=== PATIENT | female | born 1950 | race Caucasian/White ===

== ENCOUNTER → 2016-10-07 | Outpatient (CLI) | payer BC ==
[~2016-10-07] MED LIST: BUSP5TAB59 PO; EFF/375 PO; HYDR-3126 PO; LORA0.5T12 PO; NOTE; NXM/40 PO; PHEN-775 PO; TAMO20TA9 PO
--- NOTE | 2016-10-07 09:52 | Discharge Instructions ---
Discharge Instructions Procedure Procedure Date: Oct 07, 2016. Reason for visit: Right Breast Masses. Discharge Discharge Date: Oct 07, 2016. Discharge Diagnosis: post right breast ultrasound guided core biopsy in the 11:00 and 2:00 axes Instructions Activity Recommendations: Additional Limitations (see below) Return to School/Work: no limitations Recommended Home Diet: No Limitations Provider Instructions: ACTIVITY RECOMMENDATIONS: * No lifting, pushing, pulling or exercising the affected side for three days. RETURN TO SCHOOL/WORK: * You may return to work/school after the procedure, but do not perform any strenuous activities for 24 to 48 hours. MEDICATIONS: * Tylenol (two 325 mg) every four to six hours if needed for mild pain (if not allergic to Tylenol). DIET: * Resume previous diet. SPECIAL CARE INSTRUCTIONS: * Keep biopsy site dry for 24 hours. May shower after 24 hours, but do not soak (bathe) incision. * May remove Tegaderm (plastic patch) tomorrow AFTER showering. * Leave the steri-strips on for one week. Allow the steri-strips to fall off by themselves. If not off after one week, you may remove them. You may place a Bandaid crosswise over the strips, if desired. * Apply ice 10 minutes on and 10 minutes off as needed. * Wear a bra at bedtime to sleep more comfortably for 2-3 days. * Your referring physician should have the results after approximately 5 to 7 business days. * Call for unusual bleeding, fever, drainage, etc or if you have any questions call [phone] during normal business hours or after hours call Dr Nava, . FOLLOW UP VISIT: Follow-up with Referring Physician as scheduled. Allergies Coded Allergies: Erythromycin (Unverified Allergy, Intermediate, hives, 03/12/12) Amoxicillin (Verified Allergy, Unknown, hives, 12/23/13) Clavulanic Acid (Verified Allergy, Unknown, hives, 12/23/13) Riri Monge Recommendations: Call your doctor if: * Temperature above 101 degrees * Pain not relieved by pain medicine ordered * There is increased drainage or redness from any incision * You have any unanswered questions or concerns. Your Doctors Instructions noted above were prepared by provider Maria Luisa Nava. Patient Signature Section: Patient Instructions Signature Page Keely Wallace Patient (or Guardian) Signature/Date: I have read and understand the instructions given to me by my caregivers. Caregiver/RN/Doctor Signature/Date: The above-named patient and/or guardian has received patient instructions on this date. + Original Patient Signature Page (only) stays with chart. Please make copy for patient.
--- NOTE | 2016-10-07 12:36 | MAMMOGRAPHY REPORT ---
UNILATERAL RIGHT DIGITAL DIAGNOSTIC MAMMOGRAM TOMOSYNTHESIS: 10/07/2016 CLINICAL HISTORY: Status post ultrasound guided core needle biopsy 2 in the right breast. FINDINGS: Please refer to the report from right breast ultrasound guided core needle biopsy perform ed at the same time for full detail. IMPRESSION: POST PROCEDURE IMAGING FOR MARKER PLACEMENT Please refer to the report from right breast ultrasound guided core needle biopsy performed at the s ramiro time for full detail. Approximately 10% of breast cancers are not detected with mammography. A negative mammographic repor t should not delay biopsy if a clinically suggestive mass is present. Maria Luisa Nava M.D. ay/:10/07/2016 09:59:57 Supervisor Plasma: Edith NIEVES(Erwin)(Jimmy), [facility] BI-RADS Code: Post Procedure Imaging For Marker Placement
--- NOTE | 2016-10-07 12:36 | MAMMOGRAPHY REPORT ---
ULTRASOUND GUIDED BIOPSY: 10/07/2016 CLINICAL HISTORY: Indeterminate taller than wide hypoechoic lesions in the 11:00 and 2:00 axes of th e right breast. Patient presents for ultrasound guided core needle biopsy 2. COMPARISON: Comparison is made to exams dated: 10/07/2016 ultrasound biopsy, 09/23/2016 mammogram, mammogram, 09/19/2014 mammogram, 10/01/2013 aspiration, and 01/16/2012 [facility]. PATIENT CONSENT: The procedure, risks and benefits were discussed with the patient and informed writ ten consent was obtained. Specific risks to this procedure include: bleeding, infection, puncture of adjacent structure, nontarget biopsy, sampling error and medication reaction. PROCEDURE DESCRIPTION: A time out was performed and the right breast was agreed as the site of biops y. The skin was prepped and draped in the usual sterile fashion. First the taller than wide hypoech oic mass along the surgical scar in the 11:00 right breast was identified and chosen as the target f or biopsy. Subcutaneous and intraparenchymal 1% buffered lidocaine, with and without epinephrine, wa s administered as local anesthesia. A skin incision was made. Through the incision, 4 samples were taken with a 14 gauge Achieve biopsy device. A ribbon shaped metallic marker was placed at the biops y site. Hemostasis was achieved after manual compression. The patient tolerated the procedure well a nd there was no immediate complication. Then, the spiculated hypoechoic taller than wide mass in the 2:00 right breast was identified and ta rgeted for biopsy. Additional Betadine was used to cleanse the skin of the medial right breast. 1% buffered lidocaine was administered as local anesthesia. A skin incision was made. Through the inc ision, 4 samples were taken with a 14 gauge Achieve biopsy device. A wing-shaped metallic marker was placed at the biopsy site. Hemostasis was achieved after manual compression. The patient tolerated the procedure well and there was no immediate complication. All of the samples were sent to the pat hology department in appropriately labeled containers. Postprocedure right CC and MLO 2-D digital and tomosynthesis images were obtained. New metallic bio psy markers are present in the 2:00 and 11:00 axes of the right breast. The wing-shaped marker in t he 2:00 axis a lines with the new irregular and spiculated mass in question. No significant postbio psy hematoma is identified. IMPRESSION: ULTRASOUND GUIDED BIOPSY Status post ultrasound-guided core needle biopsy in the 11:00 and 2:00 axes of the right breast, wit h biopsy markers placed at each site. The patient will receive notification of the biopsy results from her referring physician. Maria Luisa Nava M.D. ay/:10/07/2016 10:23:03 Utility Engineer: Edith NIEVES(Erwin)(Jimmy), [facility]
--- NOTE | 2016-10-07 12:36 | MAMMOGRAPHY REPORT ---
MULTIPLE ULTRASOUND GUIDED BIOPSIES RIGHT BREAST: 10/07/2016 CLINICAL HISTORY: Ill-defined taller than wide hypoechoic masses in the 11:00 and 2:00 axes of the r ight breast. Patient presented for ultrasound-guided core needle biopsy 2. COMPARISON: Comparison is made to exams dated: 10/07/2016 ultrasound biopsy, 09/23/2016 mammogram, mammogram, 09/19/2014 mammogram, 10/01/2013 aspiration, and 01/16/2012 [facility]. PATIENT CONSENT: The procedure, risks and benefits were discussed with the patient and informed writ ten consent was obtained. Specific risks to this procedure include: bleeding, infection, puncture of adjacent structure, nontarget biopsy, sampling error and medication reaction. PROCEDURE DESCRIPTION: A time out was performed and the right breast was agreed as the site of biops y. The skin was prepped and draped in the usual sterile fashion. First the taller than wide hypoech oic mass along the surgical scar in the 11:00 right breast was identified and chosen as the target f or biopsy. Subcutaneous and intraparenchymal 1% buffered lidocaine, with and without epinephrine, wa s administered as local anesthesia. A skin incision was made. Through the incision, 4 samples were taken with a 14 gauge Achieve biopsy device. A ribbon shaped metallic marker was placed at the biops y site. Hemostasis was achieved after manual compression. The patient tolerated the procedure well a nd there was no immediate complication. Then, the spiculated hypoechoic taller than wide mass in the 2:00 right breast was identified and ta rgeted for biopsy. Additional Betadine was used to cleanse the skin of the medial right breast. 1% buffered lidocaine was administered as local anesthesia. A skin incision was made. Through the inc ision, 4 samples were taken with a 14 gauge Achieve biopsy device. A wing-shaped metallic marker was placed at the biopsy site. Hemostasis was achieved after manual compression. The patient tolerated the procedure well and there was no immediate complication. All of the samples were sent to the pat hology department in appropriately labeled containers. Postprocedure right CC and MLO 2-D digital and tomosynthesis images were obtained. New metallic bio psy markers are present in the 2:00 and 11:00 axes of the right breast. The wing-shaped marker in t he 2:00 axis a lines with the new irregular and spiculated mass in question. No significant postbio psy hematoma is identified. IMPRESSION: ULTRASOUND GUIDED BIOPSY Status post ultrasound guided core needle biopsy in the 2:00 and 11:00 axes of the right breast, wit h biopsy markers placed at each site. The patient will receive notification of the biopsy results from her referring physician. Maria Luisa Nava M.D. ay/:10/07/2016 10:11:28 Repair Armature Winder Helper: Edith BARROS)(Jimmy), [facility]
== END | disposition home or self-care (01) ==
LOC: C.MAMM 08:43
PROVIDERS: ATTEND Family Medicine
DX: N63 Unspecified lump in breast (principal)

== ENCOUNTER 2016-10-30 16:27 | Emergency (ER) | payer BC ==
[~2016-10-30] VITALS: Ht 172.7 cm; Wt 61.1 kg
[~2016-10-30 16:27] MED LIST changes: -BUSP5TAB59 PO; -EFF/375 PO; -HYDR-3126 PO; -LORA0.5T12 PO; -PHEN-775 PO; -TAMO20TA9 PO
[2016-10-30 16:39] VITALS: TEMP 36.6; Ht 172.7 cm; Wt 61.1 kg
[2016-10-30] MEDS ORDERED: SODIUM CHLORIDE 0.9% 1000ML 1,000 ML IV STA (17:00)
[2016-10-30] MEDS ORDERED: MoRPHine SULFATE 4 MG/ML 1 ML CARP\\VIAL IV STA (17:00)
[2016-10-30] MEDS ORDERED: ONDANSETRON INJ 2 MG/ML 2 ML VIAL IV STA ×2 (17:00→18:35)
--- NOTE | 2016-10-30 17:05 | EMERGENCY ROOM VISIT NOTE ---
History First contact with patient: 16:51 Chief Complaint: KIDNEY STONE Stated Complaint: KIDNEY STONE History of Present Illness The patient is a 66 year old female who presents to the Emergency Room with complaints of right flank pain. The patient was diagnosed with a recurrence of breast cancer last month. She had a PET scan done yesterday which was clear. She has had right-sided flank pain for the last 4 days. She did not sleep for the first 2 nights. She was seen by her family doctor yesterday. She states that her temperature at that visit was 99F. She states that she was given pain medication which helped her sleep. She states she was also told there was blood in her urine. The patient was on her way to [facility] for a very important appointment tomorrow when she developed a significant increase in pain and vomiting. She stated it was so severe they had to turn around and come here. She denies any pain in her chest, trouble breathing, pleuritic chest pain. She denies any rash. She states the pain is in the right flank. She denies any true radiation to her abdomen. She denies any pain, tingling, numbness, weakness in the upper or lower extremities. She denies any obvious hematuria dysuria, urgency or frequency. Review of Systems A 10 system review of systems was completed with positives and pertinent negatives listed in the HPI. Past Medical/Surgical History Medical Problems: (1) Breast cancer (2) Lumpectomy of breast Social History Smoking Status: Former Smoker Alcohol Use: none Marital Status: Occupation Status: employed Current/Historical Medications Scheduled Esomeprazole Magnesium (Nexium), 40 MG PO DAILY Venlafaxine Hcl (Effexor), 18.75 MG PO DAILY Allergies Coded Allergies: Erythromycin (Unverified Allergy, Intermediate, hives, 10/30/16) Amoxicillin (Verified Allergy, Unknown, hives, 10/30/16) Clavulanic Acid (Verified Allergy, Unknown, hives, 10/30/16) Physical Exam Vital Signs Date Time Temp Pulse Resp B/P Pulse Ox O2 Delivery O2 Flow Rate FiO2 10/30/16 20:41 99 18 124/70 94 10/30/16 18:32 88 16 131/78 98 Room Air 10/30/16 16:39 36.6 86 18 133/79 94 Room Air Physical Exam VITALS: Vitals are noted on the nurse's note and reviewed by myself. Vital signs stable.The patient is afebrile. Her oxygen saturation is 94% on room air. GENERAL: This is a 66-year-old female, in no acute distress, nondiaphoretic, well-developed well-nourished. SKIN: The skin was without rashes, erythema, edema, or bruising. There is no tenting of the skin. Capillary reflex less than 2 seconds. HEAD: Normocephalic atraumatic. EARS: The external ears are normal in appearance. EYES: Pupils equal round and reactive to light and accommodation. Conjunctivae without injection, sclerae without icterus. Extraocular movements intact. NOSE: Patent, turbinates without inflammation or discharge. MOUTH: Mucous membranes moist. Tonsils are not enlarged. Pharynx without erythema or exudate. Uvula midline. Airway patent. Tongue does not deviate. NECK: Supple without nuchal rigidity. No JVD. HEART: Regular rate and rhythm without murmurs gallops or rubs. LUNGS: Clear to auscultation bilaterally without wheezes, rales or rhonchi. No retractions or accessory muscle use. ABDOMEN: Positive bowel sounds x 4. Soft, nontender, without masses or organomegaly. Francisco sign negative. MUSCULOSKELETAL: No muscle atrophy, erythema, or edema noted. Full range of motion without joint tenderness in all extremities. There is mild tenderness to palpation over the right flank. Normal gait. Strength 5/5 throughout. NEURO: Patient was alert and oriented to person place and time. No focal neurological deficits. Medical Decision & Procedures ER Provider Diagnostic Interpretation: CT SCAN OF THE ABDOMEN AND PELVIS WITHOUT IV CONTRAST CLINICAL HISTORY: Right flank pain. Hematuria. Nausea. COMPARISON STUDY: Abdominal ultrasound dated 04/17/2015. Chest CT dated 07/20/2013. TECHNIQUE: CT scan of the abdomen and pelvis is performed from the lung bases to the proximal femora. Images are reviewed in the axial, sagittal, and coronal planes. IV contrast was not administered for this examination. Automated dose control exposure was utilized. CT DOSE: 597.91 mGy.cm FINDINGS: Lung bases: The heart is normal in size and without pericardial effusion. 1.7 cm cyst is noted in the right lower lobe. There is a fat-containing left Bochdalek hernia. A 2 mm pleural-based nodule at the left lung base as noted on image #13. This is of doubtful significance. No airspace consolidation or pleural effusion is seen. Liver: The unenhanced liver is normal in size, contour, and attenuation. There is no intrahepatic biliary ductal dilatation. Gallbladder: Unremarkable. Spleen: Normal in size. There are numerous (greater than 10) indeterminant splenic hypodensities. Pancreas: Unremarkable. Adrenal glands: Unremarkable. Kidneys: The unenhanced kidneys demonstrate minimal cortical atrophy and are without hydronephrosis. There are no renal calculi identified. A 5 mm angiomyolipoma is noted in the upper pole the right kidney on axial image #105. Abdominal vasculature: The abdominal aorta is normal in course and caliber noting mild to moderate atherosclerotic calcification. Bowel: The small bowel and colon are normal in course and caliber. The appendix is well-visualized and normal. Peritoneum: There is no intraperitoneal free air or abdominal ascites. There is a small fat-containing umbilical hernia. Lymphadenopathy: None. Pelvic viscera: There is a 1.3 cm soft tissue nodule suggested involving the posterior right bladder wall on axial image #320. The uterus and adnexa are normal as visualized. Skeletal structures: The skeletal structures are osteopenic. There is mild lumbosacral spondylosis and scoliosis. No lytic or blastic lesions are seen. IMPRESSION: 1. There are no acute infectious or inflammatory findings in the abdomen or pelvis. 2. A 1.3 cm soft tissue nodule is suspected involving the posterior right wall of the bladder. Neoplasm is the diagnosis of exclusion. Follow-up urology is recommended. 3. There are numerous (greater than 10) indeterminant hypodensities in the spleen. This is similar to the [address] SINGLE VIEW CHEST CLINICAL HISTORY: Flank pain. FINDINGS: An AP, portable, upright chest radiograph is compared to study dated 12/25/2013. Correlation is made with chest CT dated and 1513. The examination is degraded by portable technique and patient rotation. The cardiomediastinal silhouette is unremarkable. Emphysema and chronic interstitial thickening are similar to previous. There is no airspace consolidation or pleural effusion there is a questionable 11 mm nodular density projecting over the right lung base. No pneumothorax is seen. The skeletal structures are osteopenic. The bony thorax is grossly intact. IMPRESSION: 1. Emphysema with no active disease in the chest. 2. Findings suggest obstructive physiology. 3. There is a questionable 11 mm nodular density projecting over the right lung base. This may represent superimposition of shadows. Follow-up with a PA and lateral chest x-ray with nipple markers is recommended for reassessment. Laboratory Results 10/30/16 17:00 Red Blood Count 4.50, Mean Corpuscular Volume 86.7, Mean Corpuscular Hemoglobin 30.4, Mean Corpuscular Hemoglobin Concent 35.1, Mean Platelet Volume 10.6, Neutrophils (%) (Auto) 68.9, Lymphocytes (%) (Auto) 20.6, Monocytes (%) (Auto) 10.0, Eosinophils (%) (Auto) 0.5, Basophils (%) (Auto) 0.0, Neutrophils # (Auto ) 2.68, Lymphocytes # (Auto) 0.80, Monocytes # (Auto) 0.39, Eosinophils # (Auto ) 0.02, Basophils # (Auto) 0.00 10/30/16 17:00 Test 10/30/16 16:50 10/30/16 17:00 Urine Color YELLOW Urine Appearance CLEAR (CLEAR) Urine pH 7.5 (4.5-7.5) Urine Specific [place] 1.007 (1.000-1.030) Urine Protein NEG (NEG) Urine Glucose (UA) NEG (NEG) Urine Ketones NEG (NEG) Urine Occult Blood 2+ (NEG) Urine Nitrite NEG (NEG) Urine Bilirubin NEG (NEG) Urine Urobilinogen NEG (NEG) Urine Leukocyte Esterase NEG (NEG) Urine WBC (Auto) 1-5 /hpf (0-5) Urine RBC (Auto) 10-30 /hpf (0-4) Urine Hyaline Casts (Auto) 0 /lpf (0-5) Urine Epithelial Cells (Auto) 10-20 /lpf (0-5) Urine Bacteria (Auto) NEG (NEG) White Blood Count 3.89 K/uL (4.8-10.8) Red Blood Count 4.50 M/uL (4.2-5.4) Hemoglobin 13.7 g/dL (12.0-16.0) Hematocrit 39.0 % (37-47) Mean Corpuscular Volume 86.7 fL (80-100) Mean Corpuscular Hemoglobin 30.4 pg (25-34) Mean Corpuscular Hemoglobin Concent 35.1 g/dl (32-36) Platelet Count 183 K/uL (130-400) Mean Platelet Volume 10.6 fL (7.4-10.4) Neutrophils (%) (Auto) 68.9 % Lymphocytes (%) (Auto) 20.6 % Monocytes (%) (Auto) 10.0 % Eosinophils (%) (Auto) 0.5 % Basophils (%) (Auto) 0.0 % Neutrophils # (Auto) 2.68 K/uL (1.4-6.5) Lymphocytes # (Auto) 0.80 K/uL (1.2-3.4) Monocytes # (Auto) 0.39 K/uL (0.11-0.59) Eosinophils # (Auto) 0.02 K/uL (0-0.5) Basophils # (Auto) 0.00 K/uL (0-0.2) RDW Standard Deviation 42.5 fL (36.4-46.3) RDW Coefficient of Variation 13.3 % (11.5-14.5) Immature Granulocyte % (Auto) 0.0 % Immature Granulocyte # (Auto) 0.00 K/uL (0.00-0.02) Anion Gap 10.0 mmol/L (3-11) Est Creatinine Clear Calc Drug Dose 61.8 ml/min Estimated GFR () 82.8 Estimated GFR (Non- 71.4 BUN/Creatinine Ratio 13.7 (10-20) Calcium Level 8.9 mg/dl (8.5-10.1) Total Bilirubin 0.3 mg/dl (0.2-1) Aspartate Amino Transf (AST/SGOT) 15 U/L (15-37) Alanine Aminotransferase (ALT/SGPT) 16 U/L (12-78) Alkaline Phosphatase 63 U/L (45-117) Total Protein 6.9 gm/dl (6.4-8.2) Albumin 3.6 gm/dl (3.4-5.0) Globulin 3.3 gm/dl (2.5-4.0) Albumin/Globulin Ratio 1.1 (0.9-2) Medications Administered Medications (Trade) Dose Ordered Sig/Kassandra Route Start Time Stop Time Status Last Admin Dose Admin Sodium Chloride (Nss 1000ml) 1,000 ml @ 999 mls/hr Q1H1M STAT IV 10/30/16 17:00 10/30/16 18:00 DC 10/30/16 17:14 999 MLS/HR Morphine Sulfate (MoRPHine SULFATE INJ) 4 mg NOW STAT IV 10/30/16 17:00 10/30/16 17:02 DC 10/30/16 17:15 4 MG Ondansetron HCl (Zofran Inj) 4 mg NOW STAT IV 10/30/16 17:00 10/30/16 17:02 DC 10/30/16 17:15 4 MG Lorazepam (Ativan Inj) 1 mg NOW STAT IV 10/30/16 17:59 10/30/16 18:01 DC 10/30/16 18:03 1 MG Morphine Sulfate (MoRPHine SULFATE INJ) 2 mg NOW STAT IV 10/30/16 18:35 10/30/16 18:36 DC 10/30/16 18:35 2 MG Ondansetron HCl (Zofran Inj) 4 mg NOW STAT IV 10/30/16 18:35 10/30/16 18:36 DC 10/30/16 18:35 4 MG Ondansetron HCl (ZOFRAN ODT 4MG Home Pack) 1 homepack UD ONCE PO 10/30/16 20:45 10/30/16 20:46 DC 10/30/16 20:45 1 HOMEPACK ED Course The patient was seen and examined. Previous visits were reviewed. The patient does not have a fever. She does not have a leukocytosis. Urinalysis reveals hematuria but no obvious urinary tract infection. CT scan of the abdomen and pelvis without contrast for stone was obtained. There is no evidence for nephrolithiasis or ureterolithiasis. The patient does have a concerning soft tissue mass at the posterior aspect of the bladder. I did discuss this in detail with the patient and her and advised them that there is concern for neoplasm. This could explain her hematuria. The patient has had ongoing right flank pain. The exact etiology of her symptoms is not clear at this time. She has not had any chest pain, shortness of breath , pleuritic chest pain, tachycardia or hypoxia. She does not have a rash that was advised to watch for a rash that could indicate shingles. She is afebrile. There is no evidence for pyelonephritis or urinary tract infection. The patient was hydrated with normal saline She was given 4 mg IV morphine and 4 mg IV Zofran The patient was unable to complete her CAT scan due to anxiety and claustrophobia. She was given 1 mg IV Ativan with improvement She was then given 2 mg IV morphine and 4 mg IV Zofran She was given a Zofran home pack The patient was feeling markedly improved after the above treatment. She was able to walk and sit without any obvious difficulty. The patient was also seen and evaluated by Dr. Arizmendi. The patient states she does not wish to stay in the hospital. She states that she has pain medication at home although she does not like how it makes her feel. The patient was encouraged to follow-up with her family doctor in the next 24-48 hours. She was already able to reschedule her appointment at [facility] for the first week in November. She should return to the ER if any chest pain, shortness of breath or generalized worsening symptoms. The patient was also seen and examined by Dr. Arzimendi who agrees with the assessment and treatment plan. Medical Decision DIFFERENTIAL DIAGNOSIS: Hepatitis, cholecystitis, cholangitis, biliary colic, pancreatitis, pneumonia, subdiaphragmatic abscess, appendicitis, inguinal hernia , nephrolithiasis, inflammatory bowel disease, mesenteric adenitis, peptic ulcer disease, GERD, gastritis, pancreatitis, myocardial infarction, pericarditis, ruptured aortic aneurysm, appendicitis, gastroenteritis, bowel obstruction, splenic infarct, diverticulitis, mesenteric ischemia, metabolic, peritonitis, among others. Impression Primary Impression: Flank pain Departure Information Dispostion Home / Self-Care Condition GOOD Referrals Isai Rivera M.D. (PCP) Patient Instructions My [email or web address] Additional Instructions Zofran every 6 hours as needed for nausea Continue pain medication as prescribed as needed Return with worsening symptoms
[2016-10-30] MEDS ORDERED: EFF/375 PO (17:15)
[2016-10-30 17:17] LABS: COMPLETE YES; EOS % 0.5 %; LYMPH % 20.6 %; MEAN CELL VOLUME 86.7 fL (80-100); MEAN CORPUSCULAR HEMOGLOBIN 30.4 pg (25-34); MEAN CORPUSCULAR HGB CONC 35.1 g/dl (32-36); MEAN PLATELET VOLUME 10.6 fL (7.4-10.4); NEUT % 68.9 %; PLATELET COUNT 183 K/uL (130-400); WHITE BLOOD COUNT 3.89 K/uL (4.8-10.8)
[2016-10-30 17:35] LABS: URINE APPEARANCE CLEAR (CLEAR); URINE BILIRUBIN NEG (NEG); URINE COLOR YELLOW; URINE NITRITE NEG (NEG); URINE PH 7.5 (4.5-7.5); URINE SPECIFIC GRAVITY 1.007 (1.000-1.030); UROBILINOGEN NEG (NEG); ZZUR CULT IF INDIC CLEAN CATCH NO
[2016-10-30 17:35] LABS: CREATININE 0.84 mg/dl (0.60-1.20)
[2016-10-30 17:36] LABS: BUN/CREATININE RATIO 13.7 (10-20); CALCIUM 8.9 mg/dl (8.5-10.1); POTASSIUM 3.5 mmol/L (3.5-5.1)
[2016-10-30 17:38] LABS: ALB/GLOB RATIO 1.1 (0.9-2)
[2016-10-30 17:43] LABS: MANUAL MICROSCOPIC REQUIRED? NO; REVIEW REQ? NO
[2016-10-30] MEDS ORDERED: LORAZEPAM 2 MG/ML 1 ML VIAL IV STA (17:59)
[2016-10-30] MEDS ORDERED: MoRPHine SULFATE 2 MG/ML CARP IV STA (18:35)
--- NOTE | 2016-10-30 18:55 | DIAGNOSTIC IMAGING REPORT ---
CT SCAN OF THE ABDOMEN AND PELVIS WITHOUT IV CONTRAST CLINICAL HISTORY: Right flank pain. Hematuria. Nausea. COMPARISON STUDY: Abdominal ultrasound dated 04/17/2015. Chest CT dated 07/20/2013. TECHNIQUE: CT scan of the abdomen and pelvis is performed from the lung bases to the proximal femora. Images are reviewed in the axial, sagittal, and coronal planes. IV contrast was not administered for this examination. Automated dose control exposure was utilized. CT DOSE: 597.91 mGy.cm FINDINGS: Lung bases: The heart is normal in size and without pericardial effusion. 1.7 cm cyst is noted in the right lower lobe. There is a fat-containing left Bochdalek hernia. A 2 mm pleural-based nodule at the left lung base as noted on image #13. This is of doubtful significance. No airspace consolidation or pleural effusion is seen. Liver: The unenhanced liver is normal in size, contour, and attenuation. There is no intrahepatic biliary ductal dilatation. Gallbladder: Unremarkable. Spleen: Normal in size. There are numerous (greater than 10) indeterminant splenic hypodensities. Pancreas: Unremarkable. Adrenal glands: Unremarkable. Kidneys: The unenhanced kidneys demonstrate minimal cortical atrophy and are without hydronephrosis. There are no renal calculi identified. A 5 mm angiomyolipoma is noted in the upper pole the right kidney on axial image #105. Abdominal vasculature: The abdominal aorta is normal in course and caliber noting mild to moderate atherosclerotic calcification. Bowel: The small bowel and colon are normal in course and caliber. The appendix is well-visualized and normal. Peritoneum: There is no intraperitoneal free air or abdominal ascites. There is a small fat-containing umbilical hernia. Lymphadenopathy: None. Pelvic viscera: There is a 1.3 cm soft tissue nodule suggested involving the posterior right bladder wall on axial image #320. The uterus and adnexa are normal as visualized. Skeletal structures: The skeletal structures are osteopenic. There is mild lumbosacral spondylosis and scoliosis. No lytic or blastic lesions are seen. IMPRESSION: 1. There are no acute infectious or inflammatory findings in the abdomen or pelvis. 2. A 1.3 cm soft tissue nodule is suspected involving the posterior right wall of the bladder. Neoplasm is the diagnosis of exclusion. Follow-up urology is recommended. 3. There are numerous (greater than 10) indeterminant hypodensities in the spleen. This is similar to the [address] Electronically signed by: Kian Miller M.D. 10/30/2016 6:53 PM Dictated Date/Time: 10/30/2016 6:45 PM
--- NOTE | 2016-10-30 19:13 | DIAGNOSTIC IMAGING REPORT ---
SINGLE VIEW CHEST CLINICAL HISTORY: Flank pain. FINDINGS: An AP, portable, upright chest radiograph is compared to study dated 12/25/2013. Correlation is made with chest CT dated and 1513. The examination is degraded by portable technique and patient rotation. The cardiomediastinal silhouette is unremarkable. Emphysema and chronic interstitial thickening are similar to previous. There is no airspace consolidation or pleural effusion there is a questionable 11 mm nodular density projecting over the right lung base. No pneumothorax is seen. The skeletal structures are osteopenic. The bony thorax is grossly intact. IMPRESSION: 1. Emphysema with no active disease in the chest. 2. Findings suggest obstructive physiology. 3. There is a questionable 11 mm nodular density projecting over the right lung base. This may represent superimposition of shadows. Follow-up with a PA and lateral chest x-ray with nipple markers is recommended for reassessment. Electronically signed by: Kian Miller M.D. 10/30/2016 7:11 PM Dictated Date/Time: 10/30/2016 7:08 PM
--- NOTE | 2016-10-30 20:11 | EMERGENCY ROOM VISIT NOTE ---
ED Visit Note First contact with patient: 16:55 Patient evaluated with PA. 66-year-old reports recurrence of breast cancer scheduled to be seen at [facility] tomorrow morning however she had acute onset of right-sided flank pain today reportedly had a fever to 99 and blood in her urine for which her primary doctor reportedly told her that she had a kidney stone and prescribed Percocets. She states she felt nauseous and unwell tonight and subsequently presented to the emergency room. Her evaluation here was negative for pyelonephritis or ureterolithiasis. PA requested I see patient as she complained of continued pain. She is noted to have been prescribed 24 Percocet as well as lorazepam earlier this month for anxiety as needed. Assessment of psychiatric and neurologic status is somewhat skewed by central tremor. Patient was concerned about what actions will be taken to the emergency room for her pain despite the lack of a clear diagnosis. I offered her either observation status or discharge. PA will take care of final disposition based on patient preferences.
[2016-10-30 20:41] VITALS: BP 124/70; PULSE 99; O2SAT 94
[2016-10-30] MEDS ORDERED: ONDANSETRON HOME PACK 4MG OD TAB PO ONE (20:45)
[2017-02-17] MEDS ORDERED: LORA0.5T12 PO (16:05)
[2017-02-17] MEDS ORDERED: TAMO20TA47 PO (16:05)
[2017-02-17] MEDS ORDERED: BUSP5TAB59 PO (16:05)
[2017-02-19] MEDS ORDERED: PHEN-775 PO (08:35)
== END 2016-10-30 20:41 | disposition home or self-care (01) ==
LOC: C.EDB 16:28 → C.EDC 20:41
DX: R10.9 Unspecified abdominal pain (principal); Z85.3 Personal history of malignant neoplasm of breast; Z87.891 Personal history of nicotine dependence; R11.10 Vomiting, unspecified

== ENCOUNTER 2017-02-19 05:11 | Day surgery (SDC) | payer BC ==
[2017-02-17 16:06] VITALS: BMI 21.0
[~2017-02-19] VITALS: Ht 170.2 cm; Wt 61.4 kg
[~2017-02-19 05:11] MED LIST changes: +BUSP5TAB59 PO; +EFF/375 PO; +LORA0.5T12 PO; -NOTE; +TAMO20TA47 PO
[2017-02-19 05:43] VITALS: BP 102/52; PULSE 76; TEMP 36.7; O2SAT 97; Ht 170.2 cm; Wt 61.4 kg
[2017-02-19 05:50] LABS: HEMATOCRIT 36.1 % (37-47); MEAN CELL VOLUME 90.5 fL (80-100); MEAN CORPUSCULAR HEMOGLOBIN 30.6 pg (25-34); MEAN PLATELET VOLUME 10.2 fL (7.4-10.4); PLATELET COUNT 186 K/uL (130-400); RED BLOOD COUNT 3.99 M/uL (4.2-5.4); WHITE BLOOD COUNT 3.59 K/uL (4.8-10.8)
[2017-02-19 05:54] LABS: MEAN CORPUSCULAR HGB CONC 33.8 g/dl (32-36)
[2017-02-19] MEDS ORDERED: MITOMYCIN FOR INJ 40 MG in SYRINGE 40 ML IR SCH (06:00)
[2017-02-19] MEDS ORDERED: CEFAZOLIN 2000 MG/60 ML D5W IV SCH (06:00)
[2017-02-19] MEDS ORDERED: MIDAZOLAM HCL 1 MG/ML 2ML VIAL ONE (06:59)
[2017-02-19] MEDS ORDERED: FENTANYL CITRATE INJ 50 MCG/1 ML 2 ML VIAL ONE (06:59)
[2017-02-19 07:07] LABS: BUN/CREATININE RATIO 19.3 (10-20); CALCIUM 8.9 mg/dl (8.5-10.1); CREATININE 0.88 mg/dl (0.60-1.20); POTASSIUM 3.7 mmol/L (3.5-5.1)
[2017-02-19] MEDS ORDERED: CEFAZOLIN IV 2,000 MG/60 ML D5W IV ONE (07:12)
--- NOTE | 2017-02-19 07:13 | History & Physical Bridge Note ---
H&P Re-Evaluation Bridge Note: I have examined the patient, reviewed the History & Physical and in the interval since the performance of the History & Physical I have noted the following changes of clinical significance: No changes noted
[2017-02-19] MEDS ORDERED: NURSING VERBAL MED ORDER ONE (07:15)
[2017-02-19] MEDS ORDERED: ATROPINE SULFATE 0.1 MG/ML 5ML SYR IV PRN (07:30)
[2017-02-19] MEDS ORDERED: ONDANSETRON INJ 2 MG/ML 2 ML VIAL IV PRN (07:30)
[2017-02-19] MEDS ORDERED: PROMETHAZINE HCL INJ 6.25 MG in SODIUM CHLORIDE 0.9% 50ML 50 ML IV PRN (07:30)
[2017-02-19] MEDS ORDERED: EpHEDrine SULFATE INJ 50 MG/ML AMP IV PRN (07:30)
[2017-02-19] MEDS ORDERED: FENTANYL CITRATE INJ 50 MCG/1 ML 2 ML VIAL IV PRN (07:30)
[2017-02-19] MEDS ORDERED: PROPOFOL IV EMULSION 10 MG/ML 20 ML VIAL IV ONE (07:49)
[2017-02-19] MEDS ORDERED: LIDOCAINE HCL 2% 2 ML VIAL (20MG/ML) ONE (07:49)
[2017-02-19] MEDS ORDERED: BELLADONNA/OPIUM SUPP 60 MG SUPP PR ONE (07:49)
[2017-02-19] MEDS ORDERED: EpHEDrine SULFATE INJ 50 MG/ML AMP ONE (07:49)
[2017-02-19] MEDS ORDERED: PHENYLEPHRINE HCL INJ 10 MG/ML VIAL ONE (07:49)
[2017-02-19] MEDS ORDERED: CEFAZOLIN - ALLERGY NOTED TO ORDERED MEDICATION SCH (08:00)
--- NOTE | 2017-02-19 08:34 | [facility] Operative Report ---
Operative Report Operative Date February 19, 2017. Pre-Operative Diagnosis Bladder Cancer Post-Operative Diagnosis same Procedure(s) Performed TURBT medium with instillation of mitomycin C into bladder Surgeon Dr. Narayan Assembler Carbon Brushes Surgeon(s) none Estimated Blood Loss 1mL Findings papillary tumor right posterior wall, 30mm and fine papillary tumor surrounding main tumor. Fluids 1000mL Specimens A. Right posterior wall bladder tumor Drains 18 fr Contreras, clamped Anesthesia LMA Complication(s) None Disposition Recovery Room / PACU Indications bladder tumor found incidentally on PET scan for breast ca. Urine cytology reveals high grade bladder cancer. She presents for resection of tumor. Description of Procedure Patient was given LMA general anesthesia and placed in lithotomy position. Her genitals were prepped and draped in sterile fashion. Time out held with team. I placed a 26 fr rigid resectoscope to bladder. The urethra is unremarkable. The UOs are normal location and shape. I used a thin loop bipolar system to resect the 30mm papillary bladder tumor including muscle and the fine scattered papillary tumor around the main tumor. Tumor is 30mm posterolateral to the left UO. Saline is the irrigating solution. I rinsed the tumor pieces out and sent them for permanent section. I rinsed the bladder copiously to remove all visible debris from bladder. I placed an 18 fr contreras and inflated the balloon with 6mL of water. Once she was empty I instilled 40mg/40mL of mitomycin C into bladder and clamped the contreras. I then concluded case. I placed a belladonna and opium suppository for post-op pain. She transferred to recovery under my escort, in stable condition. Plan: Home today after [facility] instilled for 2 hours and drained. remove contreras prior to discharge. Pyridium for dysuria x 3 days Over the counter pain relievers as needed. 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 Any exceptions are noted below.
[2017-02-19] MEDS ORDERED: PHEN-775 PO (08:35)
--- NOTE | 2017-02-19 08:38 | Discharge Instructions ---
Discharge Instructions Date of Service February 19, 2017. Admission Reason for Admission: Bladder cancer Discharge Discharge Diagnosis / Problem: bladder cancer Discharge Goals Goal(s): Improve disease control Activity Recommendations Activity Limitations: as noted below Lifting Limitations: no more than 25 pounds Exercise/Sports Limitations: gradually increase as tolerated May Resume Sexual Activity: when tolerated Shower/Bathe: no limitations Driving or Machine Use: resume 1 day after discharge . Instructions / Follow-Up Instructions / Follow-Up urine will be bloody on and off for many weeks. please call office (8a-4pm) M-F [phone] or go to ER nights and weekends if you are unable to urinate for over 4 hours. Discharge Diet Recommended Diet: Regular Diet Fluid Restriction: None Procedures Procedures Performed: Transurethral Resection Bladder Tumor with Mitomycin C instillation into bladder Pending Studies Studies pending at discharge: yes List of pending studies: pathology report Medical Emergencies . Who to Call and When: Medical Emergencies: If at any time you feel your situation is an emergency, please call 911 immediately. . Non-Emergent Contact Non-Emergency issues call your: Urologist ([phone] ) Call Non-Emergent contact if: temperature is above 100.5, your pain is not controlled . . "Provider Documentation" section prepared by Kusum Narayan. . VTE Core Measure Inpt VTE Proph given/why not?: SCD's [place] Drug Monitoring Program Search Results: patient reviewed within database, no issues identified
--- NOTE | 2017-02-19 08:53 | Anesthesiology Progress Note ---
Anesthesia Post Op Note Date & Time February 19, 2017 at 08:54 Vital Signs Pain Intensity: 0 Vital Signs Past 12 Hours Date Time Temp Pulse Resp B/P Pulse Ox O2 Delivery O2 Flow Rate FiO2 02/19/17 08:46 113/57 02/19/17 08:42 81 17 100 02/19/17 08:42 80 17 02/19/17 08:41 102/55 02/19/17 08:37 77 15 100 02/19/17 08:37 76 15 02/19/17 08:36 75 12 114/58 100 02/19/17 08:36 75 12 02/19/17 08:31 83 14 115/57 100 02/19/17 08:31 81 14 02/19/17 08:26 84 18 02/19/17 08:26 84 18 115/52 100 02/19/17 08:21 80 14 113/54 02/19/17 08:21 14 02/19/17 08:21 37.2 78 16 113/54 100 Mask 10 02/19/17 05:43 36.7 76 18 102/52 97 Room Air Notes Mental Status: alert / awake / arousable, participated in evaluation Pt Amnestic to Procedure: Yes Nausea / Vomiting: adequately controlled Pain: adequately controlled Airway Patency, RR, SpO2: stable & adequate BP & HR: stable & adequate Hydration State: stable & adequate Anesthetic Complications: no major complications apparent
[2017-02-19 09:05] VITALS: BP 112/58; PULSE 71; TEMP 36.6; O2SAT 96
[2017-02-19 09:35] VITALS: BP 101/58; PULSE 72; O2SAT 94
[2017-02-19 10:05] VITALS: BP 102/52; PULSE 70; TEMP 36.8; O2SAT 96
[2017-04-16] MEDS ORDERED: HYDR-3126 PO (10:19)
== END 2017-05-01 11:45 | disposition home or self-care (01) ==
LOC: C.ACU 05:11
PROVIDERS: ATTEND Urology
DX: C67.4 Malignant neoplasm of posterior wall of bladder (principal); Z85.3 Personal history of malignant neoplasm of breast; Z90.13 Acquired absence of bilateral breasts and nipples; Z80.3 Family history of malignant neoplasm of breast; I73.00 Raynaud's syndrome without gangrene; H90.3 Sensorineural hearing loss, bilateral; K21.9 Gastro-esophageal reflux disease without esophagitis; H81.09 Meniere's disease, unspecified ear; Z87.891 Personal history of nicotine dependence; I38 Endocarditis, valve unspecified; F41.9 Anxiety disorder, unspecified; F32.9 Major depressive disorder, single episode, unspecified

== ENCOUNTER → 2017-08-14 | Outpatient (CLI) | payer BC ==
[~2017-08-14] MED LIST changes: -BUSP5TAB59 PO; +HYDR-3126 PO; -NXM/40 PO; +OPTIRAY 320 IV PRN; -TAMO20TA47 PO; +TAMO20TA9 PO
--- NOTE | 2017-08-14 14:47 | DIAGNOSTIC IMAGING REPORT ---
CT SCAN OF THE CERVICAL SPINE WITH IV CONTRAST CLINICAL HISTORY: Left-sided occipital neuralgia. COMPARISON STUDY: Radiographs of the cervical spine dated 05/30/2008. TECHNIQUE: CT scan of the cervical spine is performed from the skull base to the upper thoracic spine following the IV administration of 94 cc of Optiray 320. Images are reviewed in the axial, sagittal, and coronal planes. IV contrast was not administered for this examination. A dose lowering technique was utilized adhering to the principles of ALARA. CT DOSE: 157.87 mGy.cm FINDINGS: Skeletal structures: The skeletal structures are osteopenic. There is no evidence of fracture or subluxation involving the cervical spine. Vertebral body height is maintained. There is minimal retrolisthesis at C4-C5. Minimal anterolisthesis is seen at C2-C3. Alignment is otherwise preserved. There is straightening of the cervical lordosis with reversal centered at C4. No lytic or blastic lesion is identified. The odontoid process and lateral masses are intact. The atlantoaxial articulation is preserved noting productive degenerative change. The spinous processes appear intact. Anterior osteophytes are seen throughout. Degenerative sclerosis is seen at all levels between C3-C4 and C6-C7. There is moderate multilevel cervical spondylosis. Uncovertebral and facet arthropathy contribute to neural foraminal stenosis at several levels. Intervertebral discs: There is moderate disc space narrowing seen from C3 -C4 through C6-C7. Central canal: Posterior disc osteophyte complexes from C3 -C4 through C6-C7 likely contribute to multilevel acquired compromise of the central canal. Soft tissues: The prevertebral and paraspinous soft tissues are within normal limits. There are numerous subcentimeter thyroid nodules. No enhancing soft tissue lesion is identified throughout the visualized neck. No cervical lymphadenopathy is seen. Calvarium: The visualized calvarium at the skull base appears intact. Brain parenchyma: Partially visualized brain parenchyma the skull base is within normal limits. Sinuses and mastoids: The visualized paranasal sinuses are clear. The mastoid air cells are well pneumatized. Lung apices: Clear as visualized. IMPRESSION: 1. There is no evidence of fracture or subluxation involving the cervical spine. 2. Osteopenia and spondylotic change as above. 3. There is no CT evidence of metastatic disease in the cervical spine. Electronically signed by: Kian Miller M.D. 08/14/2017 2:45 PM Dictated Date/Time: 08/14/2017 2:39 PM
== END | disposition home or self-care (01) ==
LOC: C.CTS 14:13
PROVIDERS: ATTEND Psychiatry & Neurology Neurology
DX: M54.81 Occipital neuralgia (principal)

== ENCOUNTER → 2018-02-11 | Outpatient (CLI) | payer BC ==
--- NOTE | 2018-02-11 17:48 | DIAGNOSTIC IMAGING REPORT ---
CT OF THE CHEST WITH IV CONTRAST CLINICAL HISTORY: Shortness of breath COMPARISON STUDY: Chest CT dated 07/20/2013, chest x-ray dated 10/30/2016 TECHNIQUE: Following the IV administration of 117 mL of Optiray-320, CT of the thorax was performed from the thoracic inlet to the lung bases. Images are reviewed in the axial, sagittal, and coronal planes. IV contrast was administered without complication. A dose lowering technique was utilized adhering to the principles of ALARA. CT DOSE: 217.08 mGy.cm FINDINGS: Thyroid: Imaged portions of the thyroid gland are normal in appearance. Thoracic aorta: The thoracic aorta is normal in course and caliber, noting standard 3-vessel arch anatomy. No aneurysm or dissection is seen. Pulmonary vasculature: The pulmonary trunk is normal in caliber. There are no central filling defects identified to suggest pulmonary embolus. Note that this examination was not protocoled for the evaluation of pulmonary emboli. HEART: The heart is normal in size and configuration, without pericardial effusion. Lungs and pleural spaces: There is no pneumothorax. There are no pleural effusions. There is mild pulmonary emphysema. There is no focal pulmonary consolidation. There is a stable 2 mm right lower lobe pulmonary nodule. No endobronchial lesions are visualized. Mediastinum: There are no pathologically enlarged mediastinal lymph nodes Nettie: There is no evidence of pathologic hilar lymphadenopathy Axilla: There is no evidence of pathologic axillary lymphadenopathy Upper abdomen: There are in numerable subcentimeter splenic hypodensities. In retrospect these appear to been present on the prior 2012 study area Skeletal structures: There are no lytic or blastic osseous lesions. IMPRESSION: 1. Emphysema 2. No evidence of focal pulmonary consolidation 3. No pleural effusions 4. No evidence of pathologic adenopathy 5. Innumerable subcentimeter splenic hypodensities, a finding which has been present since at least July 2013 Electronically signed by: Jasson Molina M.D. 02/11/2018 5:47 PM Dictated Date/Time: 02/11/2018 5:40 PM
== END | disposition home or self-care (01) ==
LOC: C.CTS 17:23
PROVIDERS: ATTEND Physician Assistant
DX: Z85.3 Personal history of malignant neoplasm of breast (principal); C67.4 Malignant neoplasm of posterior wall of bladder; R06.09 Other forms of dyspnea; J43.9 Emphysema, unspecified; D73.89 Other diseases of spleen

== ENCOUNTER → 2018-06-01 | Outpatient (CLI) | payer BC ==
[~2018-06-01] MED LIST changes: -OPTIRAY 320 IV PRN
[2018-06-01 15:07] LABS: ALBUMIN 3.5 gm/dl (3.4-5.0); ALKALINE PHOSPHATASE 66 U/L (45-117); ALT/SGPT 21 U/L (12-78); AST/SGOT 14 U/L (15-37); BLOOD UREA NITROGEN 15 mg/dl (7-18); CALCIUM 8.8 mg/dl (8.5-10.1); CARBON DIOXIDE 27 mmol/L (21-32); CREATININE 0.82 mg/dl (0.60-1.20); GLUCOSE 76 mg/dl (70-99); POTASSIUM 4.1 mmol/L (3.5-5.1); SODIUM 141 mmol/L (136-145)
== END | disposition home or self-care (01) ==
LOC: C.LAB1850 13:47
PROVIDERS: ATTEND Urology
DX: C50.919 Malignant neoplasm of unspecified site of unspecified female breast (principal); C67.9 Malignant neoplasm of bladder, unspecified